=== PATIENT | male | born 1995 | race Two or more races ===

== ENCOUNTER 2018-08-17 13:11 | Emergency (ER) | payer OTHER ==
[~2018-08-17] VITALS: Ht 182.9 cm; Wt 113.4 kg
[2018-08-17 13:21] VITALS: Ht 182.9 cm; Wt 113.4 kg
[2018-08-17 15:58] VITALS: BP 127/84
== END 2018-08-17 15:59 | disposition home or self-care (01) ==
LOC: ED 13:11
DX: S29.012A Strain of muscle and tendon of back wall of thorax, initial encounter (principal); X58.XXXA Exposure to other specified factors, initial encounter; Y93.89 Activity, other specified; Y92.89 Other specified places as the place of occurrence of the external cause; Y99.8 Other external cause status
CPT/HCPCS: J1885; J2270; J2405; J3010